=== PATIENT | female | born 1975 | race Caucasian/White ===

== ENCOUNTER 2018-12-21 16:46 | Emergency (ER) | payer MEDICAID ==
[2018-12-21] MEDS: ONDANSETRON (ODT) 4 MG TAB ODT (18:08)
== END 2018-12-21 19:20 | disposition home or self-care (01) ==
LOC: E/R 16:46
DX: F10.920 Alcohol use, unspecified with intoxication, uncomplicated (principal); R40.2142 Coma scale, eyes open, spontaneous, at arrival to emergency department; R40.2252 Coma scale, best verbal response, oriented, at arrival to emergency department; R40.2362 Coma scale, best motor response, obeys commands, at arrival to emergency department; F17.210 Nicotine dependence, cigarettes, uncomplicated; R93.0 Abnormal findings on diagnostic imaging of skull and head, not elsewhere classified
CPT/HCPCS: 70450; 99284-25